=== PATIENT | female | born 1985 | race African-American/Black ===

== ENCOUNTER → 2017-11-04 12:15 | Observation (INO) | END | disposition home or self-care (01) | LOC: N.LD | PROVIDERS: ADMIT Obstetrics & Gynecology; ATTEND Obstetrics & Gynecology ==

== ENCOUNTER 2017-11-12 06:23 | Inpatient (IN) ==
[2017-11-14 07:18] VITALS: BP 140/82
== END 2017-11-14 15:15 | disposition home or self-care (01) | DRG 775 ==
LOC: N.LDOUT 06:23 → N.LD 06:25 → N.OB 21:15
PROVIDERS: ADMIT Obstetrics & Gynecology; ATTEND Obstetrics & Gynecology

== ENCOUNTER 2021-10-28 17:58 | Inpatient (IN) ==
[2021-10-28] MEDS ORDERED: ONDANSETRON 4 MG/2 ML VIAL IV PRN (18:11)
[2021-10-28] MEDS ORDERED: TRANEXAMIC ACID 1,000 MG in SODIUM CHLORIDE 0.9% 100 ML IV PRN (18:11)
[2021-10-28] MEDS ORDERED: OXYTOCIN/LR 20 UNIT/1,000 ML BAG IV ONE (18:11)
[2021-10-28] MEDS ORDERED: METHYLERGONOVINE 0.2 MG/1 ML AMP IM PRN (18:11)
[2021-10-28] MEDS ORDERED: MEPERIDINE 50 MG/1 ML VIAL IV PRN (18:11)
[2021-10-28] MEDS ORDERED: BUTORPHANOL 2 MG/ML VIAL IV PRN (18:11)
[2021-10-28] MEDS ORDERED: miSOPROStoL 200 MCG TABLET RECTAL PRN (18:11)
[2021-10-28] MEDS ORDERED: CARBOPROST TROMETHAMINE 250 MCG/ML AMP IM PRN (18:11)
[2021-10-28 19:18] LABS: Basophils % 0.3 % (0.0-0.8); Eosinophils # 0.1 10*3/uL (0.0-0.87); Eosinophils % 0.6 % (0.00-10.9); Hematocrit 33.2 VOL% (35.7-47.0); Hemoglobin 10.8 GM/DL (12.0-16.0); Immature Granulocytes % 1.4 %; Immature Granulocytes Absolute 0.15 #; Lymphocytes % 9.2 % (21.3-54.2); Mean Corpuscular HGB Conc 32.5 GM/DL (32-36); Mean Corpuscular Volume 96.8 FL (87-102); Mean Platelet Volume 11.6 FL (9.6-12.0); Monocytes # 0.5 10*3/uL (0.11-0.8); Monocytes % 4.6 % (1.7-12.7); Neutrophils % 83.9 % (38.7-73.9); Platelet Count 228 T/CUMM (130-400); Red Blood Count 3.43 MC/CUMM (3.8-5.5); Red Cell Distribution Width 13.3 % (9.3-17.3); White Blood Count 10.8 T/CUMM (4-12)
[2021-10-28 19:39] LABS: Alanine Aminotransferase 21 U/L (13-56); Albumin 2.7 G/DL (3.4-5.0); Alkaline Phosphatase 111 U/L (45-117); Aspartate Amino Transferase 19 U/L (0-37); Bilirubin,Total < 0.39 MG/DL (0.20-1.00); Blood Urea Nitrogen 13 MG/DL (7-18); Calcium 8.6 MG/DL (8.5-10.1); Carbon Dioxide 21 MMOL/L (21-32); Chloride 106 MMOL/L (98-107); Glucose 119 MG/DL (74-106); Osmolality,Calculated 277.5 MOS/KG (273-304); Potassium 3.6 MMOL/L (3.5-5.1); Sodium 139 MMOL/L (136-145); Total Protein 7.4 G/DL (6.4-8.2)
[2021-10-29] MEDS: LACTATED RINGERS 1,000 ML IV SCH ×3 (07:45→09:14)
[2021-10-29] MEDS ORDERED: OXYTOCIN/LR 20 UNIT/1,000 ML BAG IV SCH (08:00)
[2021-10-29] MEDS ORDERED: ePHEDrine 50 MG/ML VIAL IV PRN (08:06)
[2021-10-29] MEDS ORDERED: PROMETHAZINE 25 MG/1 ML VIAL IM PRN (08:06)
[2021-10-29] MEDS ORDERED: diphenhydrAMINE 50 MG/1 ML VIAL IV PRN (08:06)
[2021-10-29] MEDS ORDERED: NALOXONE 0.4 MG/ML VIAL IV PRN (08:06)
[2021-10-29] MEDS ORDERED: FAMOTIDINE 20 MG/2 ML VIAL IV ONE (08:06)
[2021-10-29] MEDS ORDERED: CITRIC ACID/SODIUM CITRATE 30 ML UDCUP PO ONE (08:06)
[2021-10-29] MEDS ORDERED: hydrOXYzine HCL 25 MG/1 ML VIAL IM PRN (08:06)
[2021-10-29] MEDS ORDERED: fentaNYL 2 MCG/ROPIV 0.2% EPID 100 ML EPIDURAL SCH (08:30)
[2021-10-29] MEDS ORDERED: TERBUTALINE 1 MG/1 ML VIAL SUBCUT ONE (12:00)
[2021-10-29] MEDS ORDERED: miSOPROStoL 200 MCG TABLET ONE (13:12)
[2021-10-29] MEDS ORDERED: CARBOPROST TROMETHAMINE 250 MCG/ML AMP IM ONE (13:13)
[2021-10-29] MEDS ORDERED: METHYLERGONOVINE 0.2 MG/1 ML AMP ONE (13:13)
[2021-10-29 13:56] LABS: Cord Arterial Blood HCO3 21.2 MMOL/L
[2021-10-29 13:59] LABS: Cord Venous Blood HCO3 22.1 MMOL/L; Cord Venous Blood PCO2 46.1 MMHG; Cord Venous Blood PO2 23.7
[2021-10-29] MEDS ORDERED: NIFEdipine 10 MG CAPSULE PO ONE (16:00)
[2021-10-29] MEDS ORDERED: ACETAMINOPHEN 325 MG TABLET PO PRN (16:27)
[2021-10-29] MEDS ORDERED: BISACODYL 10 MG SUPP RECTAL PRN (16:27)
[2021-10-29] MEDS ORDERED: WITCH HAZEL PADS 100/JAR TOP PRN (16:27)
[2021-10-29] MEDS ORDERED: BENZOCAINE 20%/MENTHOL 0.5% SPRAY 56 GM CAN TOP PRN (16:27)
[2021-10-29] MEDS ORDERED: oxyCODONE/ACETAMINOPHEN 5-325 MG TABLET PO PRN (16:27)
[2021-10-29] MEDS ORDERED: LANOLIN 50% CREAM 0.3 OZ TUBE TOP PRN (16:27)
[2021-10-29] MEDS ORDERED: HYDROCORTISONE 2.5% RECTAL CREAM 30 GM TUBE TOP PRN (16:27)
[2021-10-29] MEDS ORDERED: MEASLES/MUMPS/RUBELLA VACCINE 0.5 ML VIAL SUBCUT ONE (17:00)
[2021-10-29] MEDS ORDERED: OXYTOCIN/LR 20 UNIT/1,000 ML BAG IV ONE (17:00)
[2021-10-29] MEDS ORDERED: RHO(D) IMMUNE GLOBULIN 300 MCG SYRINGE IM ONE (17:00)
[2021-10-29] MEDS ORDERED: DIPH/TET/ACEL PERT BOOSTER VACCINE 0.5 ML VIAL IM ONE (17:00)
[2021-10-29] MEDS: IBUPROFEN 800 MG TABLET PO PRN (17:51)
[2021-10-29] MEDS: oxyCODONE/ACETAMINOPHEN 5-325 MG TABLET PO PRN (19:51)
[2021-10-29] MEDS: DOCUSATE SODIUM 100 MG CAPSULE PO SCH (21:19)
[2021-10-30 05:47] LABS: Basophils % 0.3 % (0.0-0.8); Eosinophils # 0.1 10*3/uL (0.0-0.87); Hematocrit 29.9 VOL% (35.7-47.0); Hemoglobin 9.8 GM/DL (12.0-16.0); Immature Granulocytes % 1.6 %; Immature Granulocytes Absolute 0.21 #; Lymphocytes # 1.5 10*3/uL (1.4-4.0); Lymphocytes % 11.1 % (21.3-54.2); Mean Corpuscular HGB Conc 32.8 GM/DL (32-36); Mean Corpuscular Volume 96.8 FL (87-102); Mean Platelet Volume 10.9 FL (9.6-12.0); Monocytes # 0.9 10*3/uL (0.11-0.8); Monocytes % 6.5 % (1.7-12.7); Neutrophils % 79.5 % (38.7-73.9); Platelet Count 193 T/CUMM (130-400); Red Blood Count 3.09 MC/CUMM (3.8-5.5); Red Cell Distribution Width 13.4 % (9.3-17.3); White Blood Count 13.2 T/CUMM (4-12)
[2021-10-30] MEDS: IBUPROFEN 800 MG TABLET PO PRN ×3 (07:44→20:32)
[2021-10-30] MEDS: FERROUS SULFATE 325 MG TABLET PO SCH ×2 (08:49→20:32)
[2021-10-30] MEDS: DOCUSATE SODIUM 100 MG CAPSULE PO SCH ×2 (08:49→20:32)
[2021-10-30] MEDS: oxyCODONE/ACETAMINOPHEN 5-325 MG TABLET PO PRN (09:10)
[2021-10-31 07:06] VITALS: BP 130/81
[2021-10-31] MEDS: DOCUSATE SODIUM 100 MG CAPSULE PO SCH (08:48)
[2021-10-31] MEDS: FERROUS SULFATE 325 MG TABLET PO SCH (08:48)
== END 2021-10-31 13:25 | disposition home or self-care (01) | DRG 807 ==
LOC: N.LDOUT 17:58 → N.LD 18:00 → N.OB 10-29 16:26
PROVIDERS: ADMIT Obstetrics & Gynecology; ATTEND Obstetrics & Gynecology